=== PATIENT | female | born 1950 | race African-American/Black ===

== ENCOUNTER 2022-07-05 15:57 | Emergency (ER) | payer BC, OTHER ==
[2022-07-05 16:13] VITALS: BP 138/74; PULSE 92; RESP 18; TEMP 98.1; BMI 36.9
[2022-07-05] MEDS ORDERED: ACETAMINOPHEN 325 MG TABLET (FP) PO ONE (17:43)
== END 2022-07-05 18:19 | disposition home or self-care (01) ==
LOC: JER 15:57
DX: M54.50 Low back pain, unspecified (principal); W01.0XXA Fall on same level from slipping, tripping and stumbling without subsequent striking against object, initial encounter; Y92.512 Supermarket, store or market as the place of occurrence of the external cause
CPT/HCPCS: 70450-TC; 72125-TC; 72128-TC; 72131-TC; 72192-TC; 99285-25